=== PATIENT | male | born 1940 | race Caucasian/White ===

== ENCOUNTER 2021-09-09 09:20 | Day surgery (SDC) | payer MEDICARE, BC ==
[~2021-09-09] VITALS: Ht 195.6 cm; Wt 130.8 kg
[2021-09-09] VITALS (11 sets, daily range): BP systolic 112–161; BP diastolic 42–75
[2021-09-09] MEDS ORDERED: DEXTROSE 15 GM of carb/4 tabs (each vial/BOTTLE has 4 tablets) PO PRN ×2 (09:45)
[2021-09-09] MEDS ORDERED: LORazepam 0.5 MG tablet PO PRN (09:45)
[2021-09-09] MEDS ORDERED: normal saline 1,000 ML IV SCH (09:45)
[2021-09-09] MEDS ORDERED: dextrose 50%-water 50ml dispensing syringe IV PRN ×2 (09:45)
[2021-09-09] MEDS ORDERED: glucagon, human recombinant 1mg kit SUBCUT PRN (09:45)
[2021-09-09] MEDS ORDERED: nitroGLYCERIN 0.4mg SUBLingual tab SL PRN ×2 (09:45→16:20)
[2021-09-09] MEDS ORDERED: diphenhydrAMINE 25mg capsule PO PRN (09:45)
[2021-09-09] MEDS ORDERED: insulin Lispro (HumaLOG) vial - multi-dose SQ SCH (09:45)
[2021-09-09] MEDS ORDERED: FLO0.4C PO (10:29)
[2021-09-09] MEDS ORDERED: INSU300I SQ (10:29)
[2021-09-09] MEDS ORDERED: LOSA100T57 PO (10:29)
[2021-09-09] MEDS ORDERED: METF-438 PO (10:29)
[2021-09-09] MEDS ORDERED: ALPR1TAB7 PO (10:37)
[2021-09-09] MEDS ORDERED: ASPI-1265 PO (10:37)
[2021-09-09] MEDS ORDERED: INSU100I48 SQ (10:37)
[2021-09-09] MEDS ORDERED: METO-384 PO (10:37)
[2021-09-09] MEDS ORDERED: ATOR20TA66 PO (10:37)
[2021-09-09] MEDS ORDERED: RABE20TA18 PO (10:37)
[2021-09-09] MEDS ORDERED: RABE20TA31 PO (10:37)
[2021-09-09] MEDS ORDERED: FOLI0.4T6 PO (10:37)
[2021-09-09 10:45] LABS: CREATINE KINASE 211 U/L (39-308)
[2021-09-09] MEDS ORDERED: fentaNYL/PF 50MCG/1 ML 2ML syringe ONE (13:46)
[2021-09-09] MEDS ORDERED: midazolam 1 mg/ML 2ml injection ONE ×3 (13:46→15:20)
[2021-09-09] MEDS ORDERED: iohexol 350MG/ML 100ml bottle IV ONE ×2 (13:46→15:00)
[2021-09-09] MEDS ORDERED: LIDOcaine 1% (10mg/ml)w/preservative injection 20ml MDV ONE (13:46)
[2021-09-09] MEDS ORDERED: iohexol 350 MG/ML 50ML vial IV ONE ×2 (13:46→15:06)
[2021-09-09] MEDS ORDERED: proCHLORperazine 10 MG/2 ml inj ONE (14:10)
[2021-09-09] MEDS ORDERED: nitroGLYCERIN-Tridil 50MG/D5W 250 ML IV ONE (14:42)
[2021-09-09] MEDS ORDERED: metoprolol tartrate 1mg/ml inj IV ONE (14:42)
[2021-09-09] MEDS ORDERED: hydrALAZINE 20mg/ml inj. IV ONE (14:47)
[2021-09-09 15:31] LABS: ISTAT HGB ART 13.6 g/dl (14.0-18.0); ISTAT Hct ART 40 %PCV (42-52); ISTAT O2 SATURATION ARTERIAL 94 % (95-98); ISTAT SOURCE ART
[2021-09-09 15:48] LABS: ISTAT Hct MIX 41 %PCV (42-52); ISTAT O2 SATURATION MIX VENOUS 65 % (60-80); ISTAT SOURCE VEN
[2021-09-09] MEDS ORDERED: OXAZEpam 15mg capsule PO PRN (16:20)
[2021-09-09] MEDS ORDERED: HYDROcodone/acetaminophen 10/325mg tab PO PRN (16:20)
[2021-09-09] MEDS ORDERED: proCHLORperazine 10 MG/2 ml inj IV PRN (16:20)
[2021-09-09] MEDS ORDERED: HYDROcodone/acetaminophen 5mg/325mg tablet PO PRN (16:20)
[2021-09-09] MEDS ORDERED: ondansetron/PF 4mg/2ml inj IV PRN (16:20)
[2021-09-09] MEDS ORDERED: normal saline 1000ml 1,000 ML IV SCH (16:20)
[2021-09-09] MEDS ORDERED: insulin glargine (Lantus) pen - multi-dose SQ SCH (21:00)
== END 2021-09-09 21:00 | disposition home or self-care (01) ==
LOC: SSTAY O 09:20
PROVIDERS: ATTEND Internal Medicine Cardiovascular Disease
DX: R94.39 Abnormal result of other cardiovascular function study (principal); T82.855A Stenosis of coronary artery stent, initial encounter; I25.10 Atherosclerotic heart disease of native coronary artery without angina pectoris; I08.3 Combined rheumatic disorders of mitral, aortic and tricuspid valves; E11.40 Type 2 diabetes mellitus with diabetic neuropathy, unspecified; F41.0 Panic disorder [episodic paroxysmal anxiety]; K21.9 Gastro-esophageal reflux disease without esophagitis; I11.0 Hypertensive heart disease with heart failure; I50.9 Heart failure, unspecified; E78.5 Hyperlipidemia, unspecified; Z85.46 Personal history of malignant neoplasm of prostate; Z95.2 Presence of prosthetic heart valve; Z79.899 Other long term (current) drug therapy; Z79.82 Long term (current) use of aspirin; Z79.4 Long term (current) use of insulin; Y83.8 Other surgical procedures as the cause of abnormal reaction of the patient, or of later complication, without mention of misadventure at the time of the procedure; Y92.89 Other specified places as the place of occurrence of the external cause
CPT/HCPCS: 36415; 82550; 82803; 82948; 83880; 84484; 85014; 93005; 93306; 93461; 93567; 99152; 99153; C1751; C1760; C1769; J0360; J0780; J1644; J1815; J2250; J3010; J3490; Q0163; Q9967; A4620; A6258